=== PATIENT | female | born 1985 | race Caucasian/White ===

== ENCOUNTER 2018-03-04 16:36 | Emergency (ER) | payer BC, OTHER ==
[2018-03-04 17:40] LABS: #Eosinphils 0.1 thou/uL (0.0-0.7); #Lymphocytes 2.4 thou/uL (1.20-3.40); #Monocytes 0.7 thou/uL (0.11-0.59); #Neutrophils 5.7 thou/uL (1.40-6.50); %Basophils 0.4 % (0.0-1.0); %Lymphocytes 27.3 % (21.0-51.0); %Monocytes 7.4 % (0.0-10.0); %Neutrophils 63.9 % (42.0-75.0); Hemoglobin 10.2 g/dL (12.0-16.0); Mean Corpuscular HGB CONC 34.3 g/dL (32.0-36.0); Mean Corpuscular Volume 87.5 fL (78.0-98.0); Mean Platelet Volume 8.1 fL (7.4-10.4); Platelet Count 167 thou/uL (130-400); RBC Distribution Width 12.5 % (11.5-14.5); White Blood Cell (WBC) Count 8.9 thou/uL (4.8-10.8)
[2018-03-06 01:34] LABS: Chlamydia by PCR Not Detected (NotDetected); GC by PCR Not Detected (NotDetected)
== END 2018-03-04 18:36 | disposition home or self-care (01) ==
LOC: ERS 16:36
DX: O20.0 Threatened abortion (principal); O99.341 Other mental disorders complicating pregnancy, first trimester; F41.9 Anxiety disorder, unspecified; F32.9 Major depressive disorder, single episode, unspecified; O99.331 Smoking (tobacco) complicating pregnancy, first trimester; F17.210 Nicotine dependence, cigarettes, uncomplicated; Z3A.13 13 weeks gestation of pregnancy
CPT/HCPCS: 36415; 84702; 85025; 86900; 86901; 87480; 87491; 87510; 87591; 87660; 99284

== ENCOUNTER 2018-08-22 09:10 | Inpatient (IN) | payer OTHER ==
[2018-08-22] MEDS: Lactated Ringer's 1,000 ML IV SCH ×2 (09:52→12:24)
[2018-08-22] MEDS ORDERED: Ibuprofen 800 MG TAB PO PRN (10:07)
[2018-08-22] MEDS ORDERED: HYDROcodone/Acetaminophen 5/325 mg Tablet PO PRN ×2 (10:07)
[2018-08-22] MEDS ORDERED: NS / Oxytocin 40 units/1000ml 1,000 ML IV PRN (10:07)
[2018-08-22] MEDS ORDERED: Lidocaine 1% (PF) 30 ML VIAL SC PRN (10:07)
[2018-08-22] MEDS ORDERED: Diphenoxylate HCl/Atropine Tablet PO PRN ×2 (10:07)
[2018-08-22] MEDS ORDERED: Ondansetron PF 4 MG/2 ML Vial IVP PRN ×3 (10:07→18:20)
[2018-08-22] MEDS ORDERED: Misoprostol 200 MCG TAB PR PRN (10:07)
[2018-08-22] MEDS ORDERED: Acetaminophen 500 MG TAB PO PRN (10:07)
[2018-08-22] MEDS ORDERED: Butorphanol Tartrate 1 MG/ML VIAL SLOW IVP PRN (10:07)
[2018-08-22] MEDS ORDERED: Promethazine HCl 25 MG/ML VIAL IM PRN ×2 (10:07→12:17)
[2018-08-22] MEDS ORDERED: Docusate 100 MG CAP PO PRN (10:07)
[2018-08-22 10:30] VITALS: BMI 30.5
[2018-08-22] MEDS ORDERED: Fentanyl 4 mcg/Bup 0.1% Cadd 100 ML ONE (11:17)
[2018-08-22 11:27] LABS: Mean Corpuscular HGB CONC 33.9 g/dL (32.0-36.0); Mean Corpuscular Hemoglobin 28.6 pg (27.0-31.0); Mean Corpuscular Volume 84.2 fL (78.0-98.0); Platelet Count 273 thou/uL (130-400); White Blood Cell (WBC) Count 12.2 thou/uL (4.8-10.8)
[2018-08-22 12:09] LABS: HBSAg Index 0.22 S/CO (0-0.99); Hep B Surf Ag Non-Reactive S/CO (NonReactive)
[2018-08-22 12:10] LABS: Syphilis Antibody Nonreactive (Nonreactive); Syphilis Antibody Index 0.02 S/CO (<1.00 Non-Reactive)
[2018-08-22] MEDS ORDERED: ePHEDrine/0.9% NaCl/PF SYRINGE 50 mg/10 ml SLOW IVP PRN (12:17)
[2018-08-22] MEDS ORDERED: Acetaminophen 325 MG TAB PO PRN (12:17)
[2018-08-22] MEDS ORDERED: Lactated Ringer's 500 ML IV PRN (12:17)
[2018-08-22] MEDS ORDERED: Naloxone HCl 0.4 mg/ml Vial IVP PRN ×2 (12:17)
[2018-08-22] MEDS ORDERED: diphenhydrAMINE 50 MG/ML VIAL IVP PRN (12:17)
[2018-08-22] MEDS ORDERED: Eucerin (Mineral Oil/Petrolatum,White) 30 gm Jar TOP PRN (12:17)
[2018-08-22] MEDS ORDERED: Communication Order-Pharmacy FS SCH (12:30)
[2018-08-22] MEDS ORDERED: Fentanyl 4 mcg/Bupivacaine 0.1% Cassette 100 ML EPIDURAL SCH (12:30)
[2018-08-22] MEDS ORDERED: NS w/ Oxytocin 10 units 500 ML ONE (14:53)
[2018-08-22] MEDS ORDERED: Bupivacaine/Epinephrine 0.25% 30 ML VIAL ONE (15:00)
[2018-08-22] MEDS ORDERED: NS w/ Oxytocin 10 units 500 ML IVPB SCH (15:15)
[2018-08-22] MEDS ORDERED: diphenhydrAMINE 25 MG CAP PO PRN (18:20)
[2018-08-22] MEDS ORDERED: Milk Of Magnesia 30 ML UDCUP PO PRN (18:20)
[2018-08-22] MEDS ORDERED: Preparation H Ointment 28 GM TUBE PR PRN (18:20)
[2018-08-22] MEDS ORDERED: Benzocaine/Menthol 20-0.5% 60 ML CAN TOP PRN (18:20)
[2018-08-22] MEDS ORDERED: Lanolin Ointment 7 GM TUBE TOP PRN (18:20)
[2018-08-22] MEDS ORDERED: Acetaminophen/Codeine 30-300mg Tablet PO PRN ×2 (18:20)
[2018-08-22] MEDS ORDERED: Bisacodyl 10 MG SUPP PR PRN (18:20)
[2018-08-22] MEDS ORDERED: Misoprostol 200 MCG TAB VAG PRN (18:20)
[2018-08-22] MEDS ORDERED: Zolpidem Tartrate 5 MG TAB PO PRN (18:20)
[2018-08-22] MEDS: NS / Oxytocin 40 units/1000ml 1,000 ML IV SCH ×2 (18:43→19:01)
[2018-08-22] MEDS: Ibuprofen 800 MG TAB PO SCH (22:16)
[2018-08-23] MEDS: Docusate Calcium (SURFAK) 240 MG CAP PO SCH ×3 (00:17→21:08)
[2018-08-23] MEDS: Ibuprofen 800 MG TAB PO SCH ×3 (06:35→21:08)
[2018-08-23 07:05] LABS: Hemoglobin 10.2 g/dL (12.0-16.0); Mean Corpuscular HGB CONC 33.8 g/dL (32.0-36.0); Mean Corpuscular Hemoglobin 28.9 pg (27.0-31.0); Mean Corpuscular Volume 85.3 fL (78.0-98.0); Mean Platelet Volume 8.2 fL (7.4-10.4); Platelet Count 261 thou/uL (130-400); Red Blood Cell (RBC) Count 3.54 mill/uL (4.20-5.40); White Blood Cell (WBC) Count 12.7 thou/uL (4.8-10.8)
[2018-08-23] MEDS: Ferrous Sulfate 325 MG TAB PO SCH ×2 (07:59→17:36)
[2018-08-23] MEDS ORDERED: Adacel (T-DAP) 0.5 ML SYRINGE IM ONE (09:00)
[2018-08-23] MEDS: Prenatal Vitamin 1 TAB PO SCH (09:29)
[2018-08-23] MEDS: Acetaminophen 325 MG TAB PO PRN (17:44)
[2018-08-24] MEDS: Acetaminophen 325 MG TAB PO PRN (04:21)
[2018-08-24] MEDS: Ibuprofen 800 MG TAB PO SCH ×2 (06:20→13:49)
[2018-08-24] MEDS: Ferrous Sulfate 325 MG TAB PO SCH (07:59)
[2018-08-24] MEDS: Prenatal Vitamin 1 TAB PO SCH (08:57)
[2018-08-24] MEDS: Docusate Calcium (SURFAK) 240 MG CAP PO SCH (08:57)
[2018-08-24 09:41] VITALS: BP 118/73; TEMP 98.4
== END 2018-08-24 15:29 | disposition home or self-care (01) | DRG 807 ==
LOC: L&D/OP 09:10 → L&D 10:15 → 3SW 22:25
PROVIDERS: ADMIT Obstetrics & Gynecology; ATTEND Obstetrics & Gynecology
PROC: 0HQ9XZZ Repair Perineum Skin, External Approach (ICD-10-PCS; principal; 2018-08-22)
PROC: 10E0XZZ Delivery of Products of Conception, External Approach (ICD-10-PCS; 2018-08-22)
PROC: 30233S1 Transfusion of Nonautologous Globulin into Peripheral Vein, Percutaneous Approach (ICD-10-PCS; 2018-08-22)
DX: O36.0930 Maternal care for other rhesus isoimmunization, third trimester, not applicable or unspecified (principal); Z37.0 Single live birth; O71.82 Other specified trauma to perineum and vulva; Z3A.37 37 weeks gestation of pregnancy
CPT/HCPCS: 36415; 85027; 85461; 86780; 86850; 86870; 86900; 86901; 87340; 90384; 96372; J0595; J2001; J2405

== ENCOUNTER 2019-02-04 15:30 | Emergency (ER) | payer OTHER | END 2019-02-04 16:57 | disposition home or self-care (01) | LOC: ERS 15:30 | DX: N60.42 Mammary duct ectasia of left breast (principal); F41.9 Anxiety disorder, unspecified; F32.9 Major depressive disorder, single episode, unspecified; F17.210 Nicotine dependence, cigarettes, uncomplicated | CPT/HCPCS: 87070; 87205; 99283 ==

== ENCOUNTER 2019-02-05 11:47 | Day surgery (SDC) | payer OTHER ==
[2019-02-04 17:11] VITALS: BMI 26.3
[2019-02-05 12:56] LABS: BHCG - Serum Negative (NEGATIVE); Pregs Control Background? CLEAR/WHITE (CLR/WHITE); Pregs Control Bar Appear? YES (CONTROL BAR)
[2019-02-05] MEDS ORDERED: Midazolam HCl 2 mg/2 ml Vial ONE ×2 (13:14→14:37)
[2019-02-05] MEDS ORDERED: Fentanyl 100 MCG/2 ML VIAL ONE ×4 (13:14→16:34)
[2019-02-05] MEDS ORDERED: Bupivacaine HCl 0.5%/Epinephrine 1:200,000/PF 30 ml Vial ONE (13:17)
[2019-02-05] MEDS ORDERED: Lidocaine 2% PF 5 ML VIAL ONE (13:18)
[2019-02-05] MEDS ORDERED: Lidocaine 1% PF 5 ML VIAL ONE (14:50)
[2019-02-05] MEDS ORDERED: PROPOFOL 200 MG/20 ML VIAL ONE (14:50)
[2019-02-05] MEDS ORDERED: Ondansetron PF 4 MG/2 ML Vial ONE (16:28)
--- NOTE | 2019-02-05 22:41 | OP ---
DATE OF PROCEDURE: 02/05/2019 PREOPERATIVE DIAGNOSES: Chronic left nipple discharge with a mass in the left periareolar area consistent with chronically clogged breast duct. POSTOPERATIVE DIAGNOSES: Chronic left nipple discharge with a mass in the left periareolar area consistent with chronically clogged breast duct. PROCEDURE PERFORMED: Left breast duct excision using the lacrimal probe. ANESTHESIA: General. ESTIMATED BLOOD LOSS: Minimal. COMPLICATIONS: None. SPECIMEN: The tissue in this area where the probe ends was sent to Pathology for final diagnosis. There was evidence of chronic inflammatory tissue grossly. DESCRIPTION OF PROCEDURE: The patient was taken to the operating room and laid supine on the operating room table. After general anesthetic was obtained, the left chest and breast were all prepped and draped in a sterile fashion. A lacrimal probe was used to probe from the medial left breast laterally, the tunnel went lateral to this palpable area, just to the left of her nipple. She had a second draining site that was on just lateral side of the nipple that drained to the same location. An elliptical incision was performed over the top of the probe from the nipple toward the edge of the areola on the left and the underlying tissues were all removed sharply. This area was sent to Pathology for final diagnosis. The wound was irrigated and local anesthetic was applied. There was no bleeding. The wound was closed using 3-0 Vicryl, 4-0 Monocryl, and Dermabond. The patient was sent to Recovery in stable condition. All instrument counts, needle counts, and lap counts were correct. Job ID: [id number]
== END 2019-02-05 17:40 | disposition home or self-care (01) ==
LOC: SDC 11:47
PROVIDERS: ATTEND Surgery
PROC: 0HBU3ZZ Excision of Left Breast, Percutaneous Approach (ICD-10-PCS; principal; 2019-02-05)
DX: N60.12 Diffuse cystic mastopathy of left breast (principal); N64.52 Nipple discharge; F17.210 Nicotine dependence, cigarettes, uncomplicated; F41.9 Anxiety disorder, unspecified; Z79.899 Other long term (current) drug therapy
CPT/HCPCS: 36415; 84703; 88305; J0670; J0690; J2001; J2250; J2405; J3010

== ENCOUNTER 2019-03-12 10:59 | Emergency (ER) | payer OTHER ==
[2019-03-12] MEDS ORDERED: HYDROcodone/Acetaminophen 5/325 mg Tablet ONE (11:51)
--- NOTE | 2019-03-12 12:26 | ULT ---
Left breast ultrasound INDICATION: History of left breast surgery and February 05, 2019 with the patient reportedly had a duct o r portions of the left breast gland removed near the left breast nipple, near the 3:00 position. By one week after the surgical procedure, the patient had continued pain in this region. Patient feels t hat the pain may be infectious in etiology. FINDINGS: Submitted sonographic images demonstrate the nipple areolar complex in the region of surger y, along the left breast 3:00 position. No definite drainable fluid collection is evident. There is mild scattered edematous changes. IMPRESSION: No definite drainable fluid collection demonstrated in the region of pain in the left mehran ast 3:00 retroareolar region. Recommend referral of this patient back to the treating surgeon caring for clinical follow-up. Negative imaging should not deter biopsy if findings on clinical exam are suspicious BI-RADS 2 -- benign findings
== END 2019-03-12 12:35 | disposition home or self-care (01) ==
LOC: ERS 10:59
DX: N61.0 Mastitis without abscess (principal); F17.210 Nicotine dependence, cigarettes, uncomplicated; F41.9 Anxiety disorder, unspecified; F32.9 Major depressive disorder, single episode, unspecified
CPT/HCPCS: 87070; 87205

== ENCOUNTER 2019-04-21 16:25 | Emergency (ER) | payer OTHER ==
[2019-04-21] MEDS ORDERED: Morphine 4 MG/ML VIAL ONE ×2 (17:19→18:49)
[2019-04-21] MEDS ORDERED: Ondansetron PF 4 MG/2 ML Vial ONE (17:19)
[2019-04-21 17:27] LABS: #Basophils 0.1 thou/uL (0.0-0.2); #Eosinphils 0.1 thou/uL (0.0-0.7); #Lymphocytes 2.8 thou/uL (1.20-3.40); #Monocytes 0.6 thou/uL (0.11-0.59); %Basophils 0.7 % (0.0-1.0); %Eosinophils 0.9 % (0.0-10.0); %Lymphocytes 29.3 % (21.0-51.0); %Monocytes 6.2 % (0.0-10.0); %Neutrophils 62.9 % (42.0-75.0); Hemoglobin 12.3 g/dL (12.0-16.0); Mean Corpuscular HGB CONC 32.9 g/dL (32.0-36.0); Mean Corpuscular Hemoglobin 28.1 pg (27.0-31.0); Mean Corpuscular Volume 85.2 fL (78.0-98.0); Mean Platelet Volume 8.4 fL (7.4-10.4); Platelet Count 243 thou/uL (130-400); RBC Distribution Width 12.7 % (11.5-14.5); White Blood Cell (WBC) Count 9.5 thou/uL (4.8-10.8)
[2019-04-21 17:34] LABS: BHCG - Serum Negative (NEGATIVE); Pregs Control Background? CLEAR/WHITE (CLR/WHITE); Pregs Control Bar Appear? YES (CONTROL BAR)
[2019-04-21 17:55] LABS: ALT (SGPT) 19 U/L (8-55); AST (SGOT) 11 U/L (5-34); Albumin 4.3 g/dL (3.5-5.0); Alkaline Phosphatase 82 U/L (40-150); Anion Gap 11 mmol/L (10-20); BUN (Urea Nitrogen) 9 mg/dL (7.0-18.7); Bilirubin, Total 0.3 mg/dL (0.2-1.2); Calc. Creatinine Clearance 0 mL/min (70-130); Calcium 9.8 mg/dL (7.8-10.44); Carbon Dioxide 25 mmol/L (22-29); Chloride 105 mmol/L (98-107); Estimated GFR-MDRD 89; Globulin 2.5 g/dL (2.4-3.5); Glucose 83 mg/dL (70-105); Lipase 22 U/L (8-78); Potassium 3.8 mmol/L (3.5-5.1); Protein, Total 6.8 g/dL (6.0-8.3); Sodium 137 mmol/L (136-145)
[2019-04-21 18:02] LABS: Bilirubin Negative (Negative); Blood, Urine Negative (Negative); Clarity Clear (Clear); Glucose, Urine (Dipstick) Normal (Negative); Leukocyte Negative Leu/uL (Negative); Nitrite Negative (Negative); Protein, Urine (Dipstick) 10 mg/dL (Neg-Trace); Urobilinogen Normal mg/dL (Less than 2)
--- NOTE | 2019-04-21 18:30 | ULT ---
PELVIC SONOGRAM: HISTORY: Pelvic pain. TECHNIQUE: Transabdominal and transvaginal imaging with duplex evaluation. FINDINGS: The urinary bladder is decompressed. The uterus has a homogeneous echotexture, slightly retroverted. It measures up to 7.8 cm. The endometrium is 1.1 cm. There is a physiologic amount of free fluid within the cul-de-sac. The right ovary measures up to 4 cm, with a dominant 2.9 cm follicle. The left ovary measures up to 3.4 cm. Good color and spectral Doppler flow within each ovary. IMPRESSION: Physiologic amount of free pelvic fluid may be related to recent follicle rupture. No significant ab normalities are demonstrated. POS: BST
[2019-04-21] MEDS ORDERED: Ketorolac Tromethamine 30 MG/ML VIAL ONE (19:01)
[2019-04-23 21:48] LABS: Chlamydia by PCR Not Detected (NotDetected); GC by PCR Not Detected (NotDetected)
== END 2019-04-21 19:57 | disposition home or self-care (01) ==
LOC: ERS 16:25
DX: N83.209 Unspecified ovarian cyst, unspecified side (principal); F41.9 Anxiety disorder, unspecified; F32.9 Major depressive disorder, single episode, unspecified; F17.210 Nicotine dependence, cigarettes, uncomplicated
CPT/HCPCS: 76856; 80053; 81003; 83690; 84703; 85025; 87480; 87491; 87510; 87591; 87660; 96361; 96374; 96375; 96376; J1885; J2270; J2405

== ENCOUNTER 2020-02-25 16:29 | Inpatient (IN) | payer OTHER ==
[2020-04-27] MEDS ORDERED: Bupivacaine 0.25% HCL 30 ML VIAL ONE (11:12)
[2020-04-27] MEDS ORDERED: HYDROcodone/Acetaminophen 5/325 mg Tablet PO PRN ×2 (20:16)
[2020-04-27] MEDS ORDERED: Promethazine HCl 25 MG/ML VIAL IM PRN (20:16)
[2020-04-27] MEDS ORDERED: Ibuprofen 800 MG TAB PO PRN (20:16)
[2020-04-27] MEDS ORDERED: Zolpidem Tartrate 5 MG TAB PO PRN (20:16)
[2020-04-27] MEDS ORDERED: Misoprostol 200 MCG TAB PR PRN (20:16)
[2020-04-27] MEDS ORDERED: Butorphanol Tartrate 1 MG/ML VIAL SLOW IVP PRN (20:16)
[2020-04-27] MEDS ORDERED: hydrALAZINE 20 MG/ML VIAL SLOW IVP PRN (20:16)
[2020-04-27] MEDS ORDERED: Diphenoxylate HCl/Atropine Tablet PO PRN ×2 (20:16)
[2020-04-27] MEDS ORDERED: Ondansetron PF 4 MG/2 ML Vial IVP PRN (20:16)
[2020-04-27] MEDS ORDERED: NS / Oxytocin 40 units/1000ml 1,000 ML IV PRN (20:16)
[2020-04-27] MEDS ORDERED: Lidocaine 1% (PF) 30 ML VIAL SC PRN (20:16)
[2020-04-27] MEDS ORDERED: Docusate 100 MG CAP PO PRN (20:16)
[2020-04-27] MEDS ORDERED: Acetaminophen 500 MG TAB PO PRN (20:16)
[2020-04-27 20:31] VITALS: BMI 29.0
[2020-04-27 20:42] LABS: Hemoglobin 10.8 g/dL (12.0-16.0); Mean Corpuscular HGB CONC 34.4 g/dL (32.0-36.0); Mean Corpuscular Hemoglobin 29.6 pg (27.0-31.0); Mean Corpuscular Volume 85.9 fL (78.0-98.0); Mean Platelet Volume 10.1 fL (7.4-10.4); Platelet Count 258 thou/uL (130-400); RBC Distribution Width 13.9 % (11.5-14.5); Red Blood Cell (RBC) Count 3.66 mill/uL (4.20-5.40); White Blood Cell (WBC) Count 12.3 thou/uL (4.8-10.8)
[2020-04-27] MEDS: Misoprostol 100 MCG TAB VAG SCH (20:45)
[2020-04-27] MEDS ORDERED: NS w/ Oxytocin 10 units 500 ML IV SCH ×2 (20:45)
[2020-04-27] MEDS ORDERED: hydrOXYzine Pamoate 25 mg Capsule PO PRN (20:46)
[2020-04-27 21:19] LABS: Syphilis Antibody Nonreactive (Nonreactive); Syphilis Antibody Index 0.02 S/CO (<1.00 Non-Reactive)
[2020-04-28] MEDS: Lactated Ringer's 1,000 ML IV SCH ×2 (00:05→01:17)
[2020-04-28] MEDS ORDERED: Fentanyl 4 mcg/Bup 0.1% Cadd 100 ML ONE (00:17)
[2020-04-28 01:01] LABS: HBSAg Index 0.12 S/CO (0-0.99); Hep B Surf Ag Non-Reactive S/CO (NonReactive)
[2020-04-28] MEDS ORDERED: Ondansetron PF 4 MG/2 ML Vial IVP PRN ×2 (01:39→06:27)
[2020-04-28] MEDS ORDERED: Acetaminophen 325 MG TAB PO PRN (01:39)
[2020-04-28] MEDS ORDERED: Lactated Ringer's 500 ML IV PRN (01:39)
[2020-04-28] MEDS ORDERED: Promethazine HCl 25 MG/ML VIAL IM PRN (01:39)
[2020-04-28] MEDS ORDERED: diphenhydrAMINE 50 MG/ML VIAL IVP PRN (01:39)
[2020-04-28] MEDS ORDERED: EPHEDRINE 25 MG/5 ML SYRINGE SLOW IVP PRN (01:39)
[2020-04-28] MEDS ORDERED: Naloxone HCl 0.4 mg/ml Vial IVP PRN ×2 (01:39)
[2020-04-28] MEDS ORDERED: Fentanyl 4 mcg/Bupivacaine 0.1% Cassette 100 ML EPIDURAL SCH (01:45)
[2020-04-28] MEDS ORDERED: Communication Order-Pharmacy FS SCH (01:45)
[2020-04-28] MEDS: Misoprostol 100 MCG TAB VAG SCH ×2 (03:16→21:57)
[2020-04-28] MEDS ORDERED: Misoprostol 200 MCG TAB ONE (05:44)
[2020-04-28] MEDS ORDERED: NS / Oxytocin 40 units/1000ml 1,000 ML ONE (05:44)
[2020-04-28] MEDS ORDERED: Lidocaine 1% (PF) 30 ML VIAL ONE (05:44)
[2020-04-28] MEDS ORDERED: Benzocaine-Menthol 82.5 ML CAN TOP PRN (06:27)
[2020-04-28] MEDS ORDERED: Lanolin Ointment 7 GM TUBE TOP PRN (06:27)
[2020-04-28] MEDS ORDERED: hydrALAZINE 20 MG/ML VIAL SLOW IVP PRN (06:27)
[2020-04-28] MEDS ORDERED: diphenhydrAMINE 25 MG CAP PO PRN (06:27)
[2020-04-28] MEDS ORDERED: Adacel (T-DAP) 0.5 ML SYRINGE IM ONE (06:27)
[2020-04-28] MEDS ORDERED: HYDROcodone/Acetaminophen 5/325 mg Tablet PO PRN ×2 (06:27)
[2020-04-28] MEDS ORDERED: Misoprostol 200 MCG TAB VAG PRN (06:27)
[2020-04-28] MEDS ORDERED: Preparation H Ointment 28 GM TUBE PR PRN (06:27)
[2020-04-28] MEDS ORDERED: Milk Of Magnesia 30 ML UDCUP PO PRN (06:27)
[2020-04-28] MEDS ORDERED: Bisacodyl 10 MG SUPP PR PRN (06:27)
[2020-04-28] MEDS ORDERED: NS / Oxytocin 40 units/1000ml 1,000 ML IV SCH (06:30)
[2020-04-28] MEDS: Docusate Calcium (SURFAK) 240 MG CAP PO SCH ×2 (09:54→21:35)
[2020-04-28] MEDS: Ferrous Sulfate 325 MG TAB PO SCH ×2 (09:54→17:29)
[2020-04-28] MEDS: Prenatal Vitamin 1 TAB PO SCH (09:55)
[2020-04-28] MEDS: Ibuprofen 800 MG TAB PO SCH ×2 (14:29→21:36)
[2020-04-28] MEDS ORDERED: ALPRAZolam 0.5 MG TAB PO PRN (14:39)
[2020-04-29] MEDS: Ibuprofen 800 MG TAB PO SCH (05:20)
[2020-04-29 07:12] LABS: Hemoglobin 8.6 g/dL (12.0-16.0); Mean Corpuscular HGB CONC 33.5 g/dL (32.0-36.0); Mean Corpuscular Hemoglobin 29.7 pg (27.0-31.0); Mean Corpuscular Volume 88.8 fL (78.0-98.0); Mean Platelet Volume 8.7 fL (7.4-10.4); Platelet Count 205 thou/uL (130-400); RBC Distribution Width 13.8 % (11.5-14.5); Red Blood Cell (RBC) Count 2.89 mill/uL (4.20-5.40)
[2020-04-29 08:11] VITALS: BP 115/63; TEMP 98.4
[2020-04-29] MEDS: Ferrous Sulfate 325 MG TAB PO SCH (08:22)
[2020-04-29] MEDS: Prenatal Vitamin 1 TAB PO SCH (08:22)
[2020-04-29] MEDS: Docusate Calcium (SURFAK) 240 MG CAP PO SCH (08:22)
== END 2020-04-29 14:00 | disposition home or self-care (01) | DRG 805 ==
LOC: L&D 04-27 18:06 → 3SW 04-28 09:28 → EDSTATUS 05-04 13:23
PROVIDERS: ADMIT Obstetrics & Gynecology; ATTEND Obstetrics & Gynecology
PROC: 10E0XZZ Delivery of Products of Conception, External Approach (ICD-10-PCS; principal; 2020-04-27)
PROC: 6A550ZT Pheresis of Cord Blood Stem Cells, Single (ICD-10-PCS; 2020-04-27)
PROC: 10907ZC Drainage of Amniotic Fluid, Therapeutic from Products of Conception, Via Natural or Artificial Opening (ICD-10-PCS; 2020-04-27)
PROC: 3E0234Z Introduction of Serum, Toxoid and Vaccine into Muscle, Percutaneous Approach (ICD-10-PCS; 2020-04-27)
DX: O66.3 Obstructed labor due to other abnormalities of fetus (principal); O45.93 Premature separation of placenta, unspecified, third trimester; Z37.0 Single live birth; O44.23 Partial placenta previa NOS or without hemorrhage, third trimester; O26.893 Other specified pregnancy related conditions, third trimester; Z3A.39 39 weeks gestation of pregnancy; Z23 Encounter for immunization
CPT/HCPCS: 36415; 51702; 85027; 85461; 86780; 86850; 86870; 86900; 86901; 87340; 90384; 96372; J2001; J2590; Q0177; S0020

== ENCOUNTER 2020-03-05 18:40 | Day surgery (SDC) | payer OTHER ==
[2020-03-05] MEDS ORDERED: hydrALAZINE 20 MG/ML VIAL SLOW IVP PRN (18:54)
[2020-03-05] MEDS ORDERED: Lactated Ringer's 1,000 ML IV SCH ×2 (19:00)
[2020-03-05] MEDS ORDERED: Promethazine HCl 12.5 MG in Sodium Chloride 0.9% 50 ML IVPB PRN (19:34)
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
[2020-03-05 19:54] VITALS: BP 118/58; TEMP 98.2; BMI 29.7
[2020-03-05] MEDS ORDERED: Acetaminophen 500 MG TAB PO PRN (19:58)
[2020-03-05 20:51] LABS: FFN Internal QC Analyzer PASS (PASS); FFN Internal QC Cassette PASS (PASS); Fetal Fibronectin Negative (Negative)
[2020-03-05 21:42] LABS: Bacteria/HPF None Seen HPF (None Seen); Bilirubin Negative (Negative); Blood, Urine Negative (Negative); Clarity Clear (Clear); Glucose, Urine (Dipstick) Normal (Negative); Ketone, Urine 150 mg/dL (Negative); Leukocyte Negative Leu/uL (Negative); Mucous/LPF Rare LPF (<2+); Nitrite Negative (Negative); Protein, Urine (Dipstick) 20 mg/dL (Neg-Trace); RBC/HPF 0-3 HPF (0-3); Specific Gravity, Urine 1.031 (1.002-1.036); Squamous Epithelial 0-3 HPF (0-3); Urobilinogen Normal mg/dL (Less than 2); WBC/HPF 0-3 HPF (0-3)
[2020-03-05 21:43] LABS: Urine Culture Reflex No No
--- NOTE | 2020-03-05 22:18 | PDOC.BPN ---
<Olamide Kumar - Last Filed: 03/05/20 22:15> - Brief Progress Note Pt has been able to calm herself since coming in. the 12.5 mg phenergan helped slightly, but did not make her as sleepy as a full dose normally does. Pt is fearful of going home and needing to return. Will give one more dose of phenergan and finish 2nd L LR IVF's before discharge. Counseled pt on calming environment and strategies to help bring emotions down. She feels weak, but is agreeable to the plan to go home. Had discussion about atarax, buspar, and benydryl for antianxiety. recommending close f/u with PCP, Dr. Yeboah. <Dru Baeza - Last Filed: 03/08/20 07:46> Addendum - Attending - Attending Attestation Date/Time: 03/08/2041 I personally evaluated the patient and discussed the management with Dr. Kumar I agree with the History, Examination, Assessment and Plan documented above with any addition or exceptions noted below. I have personally talked to pt about going home. Pt felt comfortable going home if she could get a good night sleep. She reports that 25mg phenergan usually puts her to sleep. PT asking about benzodiazepines as these have been her treatment for years when not . We discussed trying other options first including buspar or atarax. Also discussed benadryl to help with sleep. Plan made for pt to receive the additional 12.5mg phenergan ivpb then will go home with mom. Pt given an RX of some atarax also.
[2020-03-05] MEDS ORDERED: Promethazine HCl 25 MG/ML VIAL IM/IV SCH (22:30)
== END 2020-03-05 23:15 | disposition home or self-care (01) ==
LOC: L&D/OP 18:40
PROVIDERS: ATTEND Obstetrics & Gynecology
DX: O99.89 Other specified diseases and conditions complicating pregnancy, childbirth and the puerperium (principal); M54.5 Low back pain; R51 Headache; O99.343 Other mental disorders complicating pregnancy, third trimester; F43.0 Acute stress reaction; O09.293 Supervision of pregnancy with other poor reproductive or obstetric history, third trimester; O09.213 Supervision of pregnancy with history of pre-term labor, third trimester; Z3A.32 32 weeks gestation of pregnancy; Z88.1 Allergy status to other antibiotic agents; Z88.2 Allergy status to sulfonamides
CPT/HCPCS: 81001; 82731; J2550

== ENCOUNTER 2020-05-26 10:50 | Outpatient (CLI) | payer OTHER | END 2020-05-26 10:51 | disposition home or self-care (01) | LOC: CTENTCT 10:50 | PROVIDERS: ATTEND Student in an Organized Health Care Education/Training Program | DX: J34.2 Deviated nasal septum (principal) | CPT/HCPCS: 70486 ==

== ENCOUNTER 2020-06-10 08:44 | Outpatient (CLI) | payer OTHER ==
[2020-06-10 16:28] LABS: #Eosinphils 0.1 thou/uL (0.0-0.7); #Lymphocytes 3.5 thou/uL (1.20-3.40); #Monocytes 0.6 thou/uL (0.11-0.59); #Neutrophils 6.8 thou/uL (1.40-6.50); %Basophils 0.4 % (0.0-1.0); %Lymphocytes 31.6 % (21.0-51.0); %Monocytes 5.2 % (0.0-10.0); %Neutrophils 61.8 % (42.0-75.0); Hemoglobin 11.7 g/dL (12.0-16.0); Mean Corpuscular HGB CONC 32.7 g/dL (32.0-36.0); Mean Corpuscular Hemoglobin 28.6 pg (27.0-31.0); Mean Corpuscular Volume 87.7 fL (78.0-98.0); Mean Platelet Volume 9.5 fL (7.4-10.4); Platelet Count 255 thou/uL (130-400); RBC Distribution Width 13.6 % (11.5-14.5); Red Blood Cell (RBC) Count 4.07 mill/uL (4.20-5.40)
[2020-06-10 16:39] LABS: BHCG - Serum Negative (NEGATIVE); Pregs Control Background? CLEAR/WHITE (CLR/WHITE); Pregs Control Bar Appear? YES (CONTROL BAR)
[2020-06-10 17:44] LABS: ALT (SGPT) 23 U/L (8-55); AST (SGOT) 18 U/L (5-34); Albumin 4.4 g/dL (3.5-5.0); Alkaline Phosphatase 87 U/L (40-110); Anion Gap 17 mmol/L (10-20); BUN (Urea Nitrogen) 15 mg/dL (7.0-18.7); Bilirubin, Total 0.3 mg/dL (0.2-1.2); Calc. Creatinine Clearance 0 mL/min (70-130); Calcium 9.5 mg/dL (7.8-10.44); Carbon Dioxide 21 mmol/L (22-29); Chloride 106 mmol/L (98-107); Estimated GFR-MDRD 79; Globulin 2.5 g/dL (2.4-3.5); Glucose 77 mg/dL (70-105); Potassium 4.4 mmol/L (3.5-5.1); Protein, Total 6.9 g/dL (6.0-8.3); Sodium 140 mmol/L (136-145)
[2020-06-11 12:34] LABS: SARS-CoV-2 MS2 Positive; SARS-CoV-2 N Gene Negative; SARS-CoV-2 S Gene Negative; SARS-CoV-2 by NAA Not Detected (NotDetected); SARS-CoV-2 orf1ab Negative
[2020-06-14 12:02] LABS: Free T4 (Free Thyroxine) 0.96 ng/dL (0.70-1.48); Free Thyroxine Index 1.92 (1.4-3.1); T4 5.6 ug/dL (4.87-11.72); Thyroid Stimulating Hormone 1.6584 uIU/mL (0.35-4.94)
== END 2020-06-10 08:45 | disposition home or self-care (01) ==
LOC: LABBT 08:44
PROVIDERS: ATTEND Student in an Organized Health Care Education/Training Program
DX: Z01.812 Encounter for preprocedural laboratory examination (principal); J01.91 Acute recurrent sinusitis, unspecified; J34.2 Deviated nasal septum; J34.3 Hypertrophy of nasal turbinates; R51.9 Headache, unspecified; Z20.828 Contact with and (suspected) exposure to other viral communicable diseases
CPT/HCPCS: 80053; 82306; 84436; 84439; 84443; 84479; 84703; 85014; 87635; U0003

== ENCOUNTER 2020-06-15 09:08 | Day surgery (SDC) | payer OTHER ==
[2020-06-14 16:04] VITALS: BMI 25.8
[2020-06-15] MEDS ORDERED: Ondansetron PF 4 MG/2 ML Vial ONE ×2 (09:20→17:53)
[2020-06-15] MEDS ORDERED: Glycopyrrolate 0.2 MG/ML 5 ML SYRINGE ONE (09:20)
[2020-06-15] MEDS ORDERED: Dexamethasone 20 MG/5 ML VIAL ONE (09:20)
[2020-06-15] MEDS ORDERED: PROPOFOL 200 MG/20 ML VIAL ONE (09:20)
[2020-06-15] MEDS ORDERED: Lidocaine 1% PF 5 ML VIAL ONE (09:20)
[2020-06-15] MEDS ORDERED: Rocuronium Bromide 10 MG/ML (10ML VIAL) ONE (09:20)
[2020-06-15] MEDS ORDERED: Lidocaine 1% w/Epinephrine 1:100K 20 ML VIAL ONE (09:22)
[2020-06-15] MEDS ORDERED: EPINEPHrine 1 MG/ML AMP ONE (09:22)
[2020-06-15] MEDS ORDERED: AFRIN NASAL MIST 15 ML BOT ONE ×2 (09:22→09:32)
[2020-06-15] MEDS ORDERED: Midazolam HCl 2 mg/2 ml Vial ONE (09:33)
[2020-06-15] MEDS ORDERED: Propofol 1,000 MG/100 ML VIAL IV ONE ×2 (09:34→09:35)
[2020-06-15] MEDS ORDERED: Ketamine 50 MG/ML (10ML VIAL) ONE (09:34)
[2020-06-15] MEDS ORDERED: Propofol 500 MG/50 ML VIAL ONE (13:47)
[2020-06-15] MEDS ORDERED: Bacitracin Zinc Ointment 30 gm TUBE ONE (14:19)
[2020-06-15] MEDS ORDERED: Triamcinolone 40 MG/ML VIAL ONE (14:20)
[2020-06-15] MEDS ORDERED: HYDROcodone/Acetaminophen 5/325 mg Tablet ONE (16:51)
--- NOTE | 2020-06-18 06:20 | OP ---
DATE OF PROCEDURE: 06/15/2020 POSTOPERATIVE DIAGNOSIS: Chronic rhinosinusitis and turbinate hypertrophy. PROCEDURES: 1. Bilateral image-guided endoscopic sinus surgery. 2. Bilateral maxillary antrostomies with removal of tissue from inside the maxillary sinuses, CPT code 04241. 3. Bilateral total ethmoidectomy, code 68601. 4. Bilateral sphenoidotomy with removal of tissue from inside the sphenoid sinuses, 54642. 5. Bilateral frontal sinusotomy with removal of tissue from inside the frontal sinuses, 57127. 6. Bilateral inferior turbinate submucosal resection, 99025. 7. Bilateral lateralization of inferior turbinates, 38943. PERMIT: Procedures, benefits, risks including those of bleeding, infection, injury to anesthesia, allergic reaction, cerebrospinal fluid leak necessitating revision and repair and alternatives reviewed with the patient and family who expressed understanding of the information. A consent form was signed and witnessed and a paper copy of the consent form is available for review in the paper chart. ASSISTANTS: None. FINDINGS: Bilateral polypoid nasal mucosa and inflammation and purulence found in the sinus cavities. DESCRIPTION OF OPERATION: The patient was brought to the operating room and laid supine on the operating room table. ANESTHESIA: General endotracheal was administered. DESCRIPTION OF PROCEDURE: Septum, middle turbinate and inferior turbinate were injected bilaterally with 1% lidocaine with 1:100,000 epinephrine and 6 cottonoids soaked with epinephrine were then placed in the bilateral nasal cavities on each side. The patient was then prepped and draped in the usual fashion. Image guidance was then used to calibrate and then was used for localization of the entire case. The nose was then evaluated endoscopically with nasal endoscope. Nasal polyposis was present bilaterally. The patient was then seen to have inflammation on both nasal mucosa of the nasal cavity. At this point, the sinuses were evaluated first on the left side. A maxillary antrostomy was performed using a backbiter and oscillating microdebrider. The uncinate was taken down all the way up towards the frontal recess. After this was performed, next the maxillary antrum was then opened inline with an oscillating microdebrider. Inflammatory tissue was removed from inside the maxillary sinus using an oscillating debrider. After this was performed, next the anterior ethmoid bulla was taken down utilizing a ball-ended seeker and an oscillating microdebrider followed by opening up of the superior meatus utilizing an oscillating debrider. The superior turbinate was then identified as well as the sphenoid ostia was then identified just medial to the superior turbinate, the opening of the sphenoid sinus was then identified. The entire face of the sphenoid was taken down utilizing an oscillating microdebrider and 2 Kerrison followed by removal of inflammatory tissue from inside the sphenoid sinus. The skull base was then traced posteriorly to the anterior direction. Anterior ethmoid air cells were taken down with care to avoid injury to the cribriform plate or the lamina papyracea. This then lead straight to the frontal recess and the frontal recess was then widely opened using a chain Kerrison punch and a mushroom punch. After this was performed, the same procedure was performed on the opposite side. The right side with similar results. Maxillary antrum was opened utilizing a microdebrider and a backbiter in a similar fashion as opening side along with removal of contents from the maxillary sinus using oscillating microdebrider. Next, the anterior ethmoid bulla was taken down utilizing a microdebrider and the sphenoid ostia was then localized again just medial to the superior turbinate and was taken down using 2 Kerrison and microdebrider. The sphenoid face was taken down completely and the polyps were removed from inside the sphenoid sinus followed by tracing of the skull base from posterior to anterior direction, removing the posterior and anterior ethmoid air cells utilizing curved suction oscillating microdebrider and a 2 Kerrison. Care was taken to avoid injury to the lamina papyracea and cribriform plate. This then led up to the frontal recess and the frontal sinus was then widely opened up with a chain Kerrison punch and mushroom punch. The sinuses were then irrigated copiously and suctioned bilaterally. Meticulous hemostasis was obtained with the use of epinephrine-soaked pledgets. Afterwards nasal pore packing was then placed in the middle meatus bilaterally as well as propel stents in the frontal sinus and sphenoid sinus. The endoscopes were withdrawn and the patient tolerated the procedure well and without complications and was turned back to anesthesia for emergence. Job ID: [id number] [facility]
== END 2020-06-15 18:10 | disposition home or self-care (01) ==
LOC: SDC 09:08
PROVIDERS: ATTEND Student in an Organized Health Care Education/Training Program
PROC: 09BS8ZZ Excision of Right Frontal Sinus, Via Natural or Artificial Opening Endoscopic (ICD-10-PCS; principal; 2020-06-15)
PROC: 09TU8ZZ Resection of Right Ethmoid Sinus, Via Natural or Artificial Opening Endoscopic (ICD-10-PCS; principal; 2020-06-15)
PROC: 09TV8ZZ Resection of Left Ethmoid Sinus, Via Natural or Artificial Opening Endoscopic (ICD-10-PCS; principal; 2020-06-15)
PROC: 09SL0ZZ Reposition Nasal Turbinate, Open Approach (ICD-10-PCS; principal; 2020-06-15)
PROC: 09BT8ZZ Excision of Left Frontal Sinus, Via Natural or Artificial Opening Endoscopic (ICD-10-PCS; principal; 2020-06-15)
PROC: 09BQ8ZZ Excision of Right Maxillary Sinus, Via Natural or Artificial Opening Endoscopic (ICD-10-PCS; principal; 2020-06-15)
PROC: 09BR8ZZ Excision of Left Maxillary Sinus, Via Natural or Artificial Opening Endoscopic (ICD-10-PCS; principal; 2020-06-15)
PROC: 8E09XBZ Computer Assisted Procedure of Head and Neck Region (ICD-10-PCS; principal; 2020-06-15)
PROC: 09BX8ZZ Excision of Left Sphenoid Sinus, Via Natural or Artificial Opening Endoscopic (ICD-10-PCS; principal; 2020-06-15)
PROC: 09BW8ZZ Excision of Right Sphenoid Sinus, Via Natural or Artificial Opening Endoscopic (ICD-10-PCS; principal; 2020-06-15)
DX: J32.9 Chronic sinusitis, unspecified (principal); J34.3 Hypertrophy of nasal turbinates; J33.8 Other polyp of sinus; J34.2 Deviated nasal septum; G43.909 Migraine, unspecified, not intractable, without status migrainosus; F41.9 Anxiety disorder, unspecified; F32.9 Major depressive disorder, single episode, unspecified; F17.210 Nicotine dependence, cigarettes, uncomplicated; Z79.2 Long term (current) use of antibiotics; Z79.52 Long term (current) use of systemic steroids; Z79.899 Other long term (current) drug therapy; Z88.1 Allergy status to other antibiotic agents; Z88.2 Allergy status to sulfonamides
CPT/HCPCS: C2625; J0171; J1100; J2250; J2405; J2704; J3301

== ENCOUNTER 2020-08-13 14:06 | Emergency (ER) | payer OTHER ==
[~2020-08-13 14:06] MED LIST: Iopamidol-370 76% 500 ML 1 ML ONE
[2020-08-13] MEDS ORDERED: Morphine 4 MG/ML VIAL ONE ×2 (14:53→16:36)
[2020-08-13] MEDS ORDERED: Vancomycin 1 GM/200 ML BAG ONE (14:54)
[2020-08-13] MEDS ORDERED: Piperacillin/Tazobactam 3.375 GM VIAL ONE (14:54)
[2020-08-13 15:09] LABS: #Basophils 0.1 thou/uL (0.0-0.2); #Eosinphils 0.1 thou/uL (0.0-0.7); #Lymphocytes 2.3 thou/uL (1.20-3.40); #Monocytes 0.6 thou/uL (0.11-0.59); #Neutrophils 7.6 thou/uL (1.40-6.50); %Basophils 0.5 % (0.0-1.0); %Eosinophils 1.1 % (0.0-10.0); %Lymphocytes 21.7 % (21.0-51.0); %Monocytes 5.7 % (0.0-10.0); Hemoglobin 11.6 g/dL (12.0-16.0); Mean Corpuscular Hemoglobin 28.6 pg (27.0-31.0); Mean Corpuscular Volume 84.3 fL (78.0-98.0); Mean Platelet Volume 8.4 fL (7.4-10.4); Platelet Count 225 thou/uL (130-400); RBC Distribution Width 13.8 % (11.5-14.5); Red Blood Cell (RBC) Count 4.06 mill/uL (4.20-5.40); White Blood Cell (WBC) Count 10.7 thou/uL (4.8-10.8)
[2020-08-13 15:20] LABS: BHCG - Serum Negative (NEGATIVE); Pregs Control Background? CLEAR/WHITE (CLR/WHITE); Pregs Control Bar Appear? YES (CONTROL BAR)
[2020-08-13 15:28] LABS: Anion Gap 14 mmol/L (10-20); BUN (Urea Nitrogen) 8 mg/dL (7.0-18.7); Calc. Creatinine Clearance 0 mL/min (70-130); Carbon Dioxide 23 mmol/L (22-29); Chloride 104 mmol/L (98-107); Glucose 76 mg/dL (70-105); Potassium 3.7 mmol/L (3.5-5.1); Sodium 137 mmol/L (136-145)
--- NOTE | 2020-08-13 16:04 | CT ---
CT Abdomen Pelvis W Con HISTORY: Concern for abscess to the left perineum and thigh COMPARISON: None. FINDINGS: There is a mild infiltrate at the left lung base. The liver, spleen, pancreas, adrenal glan ds and kidneys are normal. No calcified gallstones are seen. No free air or lymphadenopathy seen in the abdomen or pelvis. There are enlarged lymph nodes in the left inguinal region measuring up to 15 mm and 12 mm left external iliac lymph node.. The small bowel loops are not abnormally dilated. A normal-appearing appendix is present. No acute os seous abnormalities are seen and there is mild levoscoliosis in the lumbar spine. The uterus is present. There is a 2.3 cm right adnexal cyst likely ovarian. There is a small amount o f free fluid in the pelvis. No loculated fluid collection is seen in the perirectal or perineal regions. There is mild induration of the fat in the left perineal region. IMPRESSION: 1. Left basilar infiltrate. 2. 2.3 cm right adnexal cyst likely ovarian and small amount of free fluid in the pelvis 3. Left inguinal and external iliac lymphadenopathy.
[2020-08-13] MEDS ORDERED: diphenhydrAMINE 25 MG CAP ONE (17:35)
== END 2020-08-13 19:02 | disposition home or self-care (01) ==
LOC: ERS 14:06
DX: L03.315 Cellulitis of perineum (principal); F17.210 Nicotine dependence, cigarettes, uncomplicated
CPT/HCPCS: 36415; 74177; 80048; 84703; 85025; 96365; 96366; 96368; 96375; 96376; J2270; J2543; J3370; Q0163; Q9967

== ENCOUNTER 2020-12-05 13:30 | Emergency (ER) | payer OTHER ==
[2020-12-05] MEDS ORDERED: Ondansetron ODT 4 MG TAB ONE (15:57)
[2020-12-05] MEDS ORDERED: Diazepam 5 MG TAB ONE (15:57)
[2020-12-05] MEDS ORDERED: HYDROmorphone 0.5 MG/0.5 ML SYRINGE ONE (15:57)
[2020-12-05] MEDS ORDERED: Dexamethasone 4 MG TAB ONE (15:57)
== END 2020-12-05 16:22 | disposition home or self-care (01) ==
LOC: ERS 13:30
DX: S16.1XXA Strain of muscle, fascia and tendon at neck level, initial encounter (principal); S39.012A Strain of muscle, fascia and tendon of lower back, initial encounter; F17.210 Nicotine dependence, cigarettes, uncomplicated; W19.XXXA Unspecified fall, initial encounter
CPT/HCPCS: 96372; 99283; J1170; J8540; Q0162

== ENCOUNTER 2021-09-08 12:48 | Outpatient (CLI) | payer OTHER | END 2021-09-08 12:49 | disposition home or self-care (01) | LOC: BICMAMMO 12:48 | PROVIDERS: ATTEND Physician Assistant | DX: N64.52 Nipple discharge (principal); N64.4 Mastodynia | CPT/HCPCS: 77066; G0279 ==

== ENCOUNTER 2021-12-20 09:37 | Outpatient (CLI) | payer OTHER ==
[2021-12-20] MEDS ORDERED: Magnevist 469MG/ML 20 ML VIAL ONE (10:13)
== END 2021-12-20 09:38 | disposition home or self-care (01) ==
LOC: TBSIIMAG 09:37
PROVIDERS: ATTEND Physician Assistant
DX: G43.119 Migraine with aura, intractable, without status migrainosus (principal); J34.1 Cyst and mucocele of nose and nasal sinus
CPT/HCPCS: 70553; A9579

== ENCOUNTER 2023-03-12 15:32 | Outpatient (CLI) | payer OTHER | END 2023-03-12 15:33 | disposition home or self-care (01) | LOC: SCSRAD 15:32 | PROVIDERS: ATTEND Physician Assistant | DX: M54.9 Dorsalgia, unspecified (principal); G89.29 Other chronic pain; M41.9 Scoliosis, unspecified | CPT/HCPCS: 72040; 72072; 72100 ==